=== PATIENT | male | born 1970 | race Hispanic/Latino ===

== ENCOUNTER 2020-10-07 10:29 | Emergency (ER) | payer OTHER, SELFPAY ==
--- NOTE | 2020-10-07 11:00 | ER ---
Nurse's Notes [facility] Name: Levy Willett Age: 50 yrs Sex: Male : 1970 Arrival Date: 10/07/2020 Time: 10:30 Bed 4 Private MD: Diagnosis: Unspecified fracture of second metacarpal bone, right hand-OPEN;Fracture of unspecified phalanx of left thumb-OPEN MCP, TENDON INVOLVEMENT Presentation: 10/07 10:30 Chief complaint: EMS states: Pt cut right hand with table saw, large amount of jl7 bleeding, tourniquet applied in route, 18 right FA. Care prior to arrival: IV initiated. 18 GA, in the right forearm. Mechanism of Injury: Laceration sustained at work, while working, from table saw Injury was accidental. 10:30 Acuity: GERBER 2 jl7 10:30 Method Of Arrival: EMS: [facility] jl7 10:30 Trauma event details: Injury occurred in the [facility], Injury occurred: at home. Injury occurred: October 07, 2020 Injury occurred at: 10:00. 10:30 Coronavirus screen: At this time, the client does not indicate any symptoms associated bp with coronavirus-19. Ebola Screen: No symptoms or risks identified at this time. Complicating Factors: There are no complicating factors for this patient. Initial Sepsis Screen: Does the patient meet any 2 criteria? HR > 90 bpm. No. Patient's initial sepsis screen is negative. Does the patient have a suspected source of infection? No. Patient's initial sepsis screen is negative. Risk Assessment: Do you want to hurt yourself or someone else? Patient reports no desire to harm self or others. Onset of symptoms was October 07, 2020 at 10:00. Triage Assessment: 10:30 Injury Description: Laceration sustained to right hand is 7.6 to 20 cm long, TOURNIQUET bp IN PLACE. Trauma Activation: Consult Physician: ED Physician; Name: ; Notified At: ; Arrived At: Physician: General Surgeon; Name: ; Notified At: ; Arrived At: Physician: Radiology; Name: ; Notified At: ; Arrived At: Physician: Respiratory; Name: ; Notified At: ; Arrived At: Physician: Lab; Name: ; Notified At: ; Arrived At: Historical: - Allergies: 10:30 No Known Allergies; bp - Home Meds: 10:30 None [Active]; bp - PMHx: 10:30 None; bp - Immunization history: Last tetanus immunization: unknown. - Social history:: Smoking status: Patient denies any tobacco usage or history of. Screenin:30 Abuse screen: Denies threats or abuse. Denies injuries from another. Tuberculosis bp screening: No symptoms or risk factors identified. 10:50 Nutritional screening: No deficits noted. Fall Risk None identified. bp Primary Survey: 10:30 NO uncontrolled hemorrhage observed. A: The patient is alert. Airway: patent. bp Breathing/Chest: Respiratory pattern: regular, Respiratory effort: spontaneous, unlabored. Circulation: Skin color: pink, Skin temperature: moist, cool. Disability Alert. Exposure/Environment: All clothing and personal items were removed. Forensic evidence collection is not deemed to be indicated at this time. Items placed in patient belonging bag. There is evidence of uncontrolled external hemorrhage. Provider notified immediately. Methods to control bleeding applied. Obvious injury(ies) are noted at this time: PARTIAL AMPUTATION OF R HAND A warming method has been applied: A warm blanket has been provided to the patient. Assessment: 10:30 General: Appears distressed, uncomfortable, Behavior is cooperative, appropriate for bp age, agitated, anxious. Pain: Complains of pain in right hand. Neuro: No deficits noted. EENT: No deficits noted. Cardiovascular: No deficits noted. Respiratory: No deficits noted. GI: No signs and/or symptoms were reported involving the gastrointestinal system. : No signs and/or symptoms were reported regarding the genitourinary system. Derm: No deficits noted. Musculoskeletal: No deficits noted. 10:50 Injury Description: Laceration sustained to right hand is 7.6 to 20 cm long, bleeding bp moderately, TOURNIQUET REMOVED BY MD, NO PULSATILE BLEEDING NOTED. Vital Signs: 10:30 BP 145 / 108; Pulse 74; Resp 24; Temp 97.5; Pulse Ox 99% ; bp 11:53 BP 171 / 84; Pulse 57; Resp 20; Temp 97.9(O); Pulse Ox 98% on R/A; mh5 Oscar Coma Score: 10:30 Eye Response: spontaneous(4). Verbal Response: oriented(5). Motor Response: obeys bp commands(6). Total: 15. Trauma Score (Adult): 10:30 Eye Response: spontaneous(1); Verbal Response: oriented(1); Motor Response: obeys bp commands(2); Systolic BP: > 89 mm Hg(4); Respiratory Rate: 10 to 29 per min(4); [place] Score: 15; Trauma Score: 12 ED Course: 10:30 Patient arrived in ED. am2 10:30 Arm band placed on. bp 10:30 Patient maintains SpO2 saturation greater than 95% on room air. Thermoregulation: warm bp blanket given to patient. 10:30 Maintain EMS IV. Dressing intact. Good blood return noted. Site clean \T\ dry. Gauge \T\ bp site: 18 GAUGE LEFT FA. 10:34 Carmen Smith, HANNA is Primary Nurse. jl7 10:34 Issa Ny MD is Attending Physician. [facility] 10:34 Patient has correct armband on for positive identification. Bed in low position. Call mh5 light in reach. Side rails up X 1. conveyor monitor on. Pulse ox on. NIBP on. 10:42 Triage completed. jl7 10:42 rBian Webster, HANNA is Primary Nurse. bp 10:[address] Ny with Zaida from the [facility] Transfer [place].eb 10:52 administrative approval given by Zaida Hillman Rn/ Patient has been accepted to [facility] ER/ Dr. Ortiz has accepted the patient without conference/ Report to be called to [phone]. 10:57 Hand Right 3 View XRAY In Process Unspecified. EDMS 11:49 Initial lab(s) drawn, by ED staff, EKG done, by ED staff, reviewed by Issa Ny MD 5 COVID swab sent to lab. Dressings: Jorge x 4 right hand. 11:52 Dressings: PRESSURE DRESSING. mh5 Administered Medications: 10:30 Drug: morphine 4 mg Route: IVP; Site: left forearm; bp 10:30 Drug: Zofran (Ondansetron) 4 mg Route: IVP; Site: left forearm; bp 10:35 Drug: fentaNYL (PF) 100 mcg Route: IVP; Site: left forearm; bp 10:45 Drug: NS 0.9% 500 ml Route: IV; Rate: bolus; Site: left forearm; bp 10:45 Drug: Dilaudid (HYDROmorphone) 1 mg Route: IVP; Site: left forearm; bp 11:00 Drug: Ancef (cefazolin) 2 grams Route: IVPB; Infused Over: 30 mins; Site: left forearm; bp 11:00 Drug: Tetanus-Diphtheria Toxoid Adult 0.5 ml {Skelp Processor: [employer]. Exp: bp 10/07/2021. Lot #: [id number]. } Route: IM; Site: left deltoid; 11:00 Drug: NS 0.9% 1000 ml Route: IV; Rate: 125 ml/hr; Site: left forearm; bp 11:10 Drug: Dilaudid (HYDROmorphone) 1 mg Route: IVP; Site: left forearm; bp Intake: 10:30 PO: 0ml; Total: 0ml. bp Output: 10:30 Urine: 0ml; Total: 0ml. bp Outcome: 11:00 ER care complete, transfer ordered by . darren 12:24 Patient left the ED. 5 Signatures: Dispatcher [employer] EDMS Issa Ny MD MD cha Calderon, Audri, RN RN [email or web address] [facility] Carmen Smith RN RN [email or web address] Caterina Abreu Brian, RN RN Debbi Gonzalez Corrections: (The following items were deleted from the chart) 10:52 10:50 Injury Description: Laceration sustained to right hand is 7.6 to 20 cm long, bp bleeding moderately, TOURNIQUET REMOVED, NO PULSATILE BLEEDING NOTED bp 12:20 11:49 CORONAVIRUS+MR.LAB.AYDEN drawn and sent. [address]
--- NOTE | 2020-10-07 11:00 | EDPHYS ---
Physician Documentation [facility] Name: Levy Willett Age: 50 yrs Sex: Male : 1970 Arrival Date: 10/07/2020 Time: 10:30 Bed 4 Private MD: ED Physician Issa Ny HPI: 10/07 10:50 This 50 yrs old Male presents to ER via EMS with complaints of Laceration To darren Hand. 10:50 The patient has a laceration related to: doing carpentry, occurred at work. The darren laceration(s) is(are) located on the right hand. Onset: The symptoms/episode began/occurred just prior to arrival. Associated signs and symptoms: The patient has no apparent associated signs or symptoms. The patient has not experienced similar symptoms in the past. The patient has not recently seen a physician. Historical: - Allergies: 10:30 No Known Allergies; bp - Home Meds: 10:30 None [Active]; bp - PMHx: 10:30 None; bp - Immunization history: Last tetanus immunization: unknown. - Social history:: Smoking status: Patient denies any tobacco usage or history of. ROS: 10:51 Constitutional: Negative for fever, chills, and weight loss, Eyes: Negative for injury, darren pain, redness, and discharge, ENT: Negative for injury, pain, and discharge, Neck: Negative for injury, pain, and swelling, Cardiovascular: Negative for chest pain, palpitations, and edema, Respiratory: Negative for shortness of breath, cough, wheezing, and pleuritic chest pain, Abdomen/GI: Negative for abdominal pain, nausea, vomiting, diarrhea, and constipation, Back: Negative for injury and pain, : Negative for injury, bleeding, discharge, and swelling, Skin: Negative for injury, rash, and discoloration, Neuro: Negative for headache, weakness, numbness, tingling, and seizure, Psych: Negative for depression, anxiety, suicide ideation, homicidal ideation, and hallucinations, Allergy/Immunology: Negative for hives, rash, and allergies, Endocrine: Negative for neck swelling, polydipsia, polyuria, polyphagia, and marked weight changes, Hematologic/Lymphatic: Negative for swollen nodes, abnormal bleeding, and unusual bruising. 10:51 MS/extremity: Positive for decreased range of motion, deformity, laceration, pain, swelling, tenderness, of the right hand. 10:51 MS/extremity: Positive for OPEN FRACTURES. Exam: 10:51 Constitutional: This is a well developed, well nourished patient who is awake, alert, darren and in no acute distress. Head/Face: Normocephalic, atraumatic. Eyes: Pupils equal round and reactive to light, extra-ocular motions intact. Lids and lashes normal. Conjunctiva and sclera are non-icteric and not injected. Cornea within normal limits. Periorbital areas with no swelling, redness, or edema. ENT: Nares patent. No nasal discharge, no septal abnormalities noted. Tympanic membranes are normal and external auditory canals are clear. Oropharynx with no redness, swelling, or masses, exudates, or evidence of obstruction, uvula midline. Mucous membranes moist. Neck: Trachea midline, no thyromegaly or masses palpated, and no cervical lymphadenopathy. Supple, full range of motion without nuchal rigidity, or vertebral point tenderness. No Meningismus. Chest/axilla: Normal chest wall appearance and motion. Nontender with no deformity. No lesions are appreciated. Cardiovascular: Regular rate and rhythm with a normal S1 and S2. No gallops, murmurs, or rubs. Normal PMI, no JVD. No pulse deficits. Respiratory: Lungs have equal breath sounds bilaterally, clear to auscultation and percussion. No rales, rhonchi or wheezes noted. No increased work of breathing, no retractions or nasal flaring. Abdomen/GI: Soft, non-tender, with normal bowel sounds. No distension or tympany. No guarding or rebound. No evidence of tenderness throughout. Back: No spinal tenderness. No costovertebral tenderness. Full range of motion. Male : Normal genitalia with no discharge or lesions. Skin: Warm, dry with normal turgor. Normal color with no rashes, no lesions, and no evidence of cellulitis. Neuro: Awake and alert, GCS 15, oriented to person, place, time, and situation. Cranial nerves II-XII grossly intact. Motor strength 5/5 in all extremities. Sensory grossly intact. Cerebellar exam normal. Normal gait. Psych: Awake, alert, with orientation to person, place and time. Behavior, mood, and affect are within normal limits. 10:51 Musculoskeletal/extremity: Extremities: noted in the right hand: decreased ROM, deformity, pain, swelling, tenderness, ROM: limited active range of motion, limited passive range of motion, limited active range of motion due to pain, limited passive range of motion due to pain, Circulation is intact in all extremities. Tingling of extremity. numbness, decreased sensation, Compartment Syndrome exam of affected extremity: is normal. Vital Signs: 10:30 BP 145 / 108; Pulse 74; Resp 24; Temp 97.5; Pulse Ox 99% ; bp 11:53 BP 171 / 84; Pulse 57; Resp 20; Temp 97.9(O); Pulse Ox 98% on R/A; mh5 Oscar Coma Score: 10:30 Eye Response: spontaneous(4). Verbal Response: oriented(5). Motor Response: obeys bp commands(6). Total: 15. Trauma Score (Adult): 10:30 Eye Response: spontaneous(1); Verbal Response: oriented(1); Motor Response: obeys bp commands(2); Systolic BP: > 89 mm Hg(4); Respiratory Rate: 10 to 29 per min(4); Oscar Score: 15; Trauma Score: 12 MDM: 10:35 Patient medically screened. [facility] 10:56 Differential diagnosis: tendon injury, vascular injury. Data reviewed: vital signs, [facility] nurses notes, lab test result(s), EKG, radiologic studies, plain films. Data interpreted: bus monitor: rate is 74 beats/min, Pulse oximetry: on room air is 99 %. Test interpretation: by ED physician or midlevel provider: ECG, plain radiologic studies. Counseling: I had a detailed discussion with the patient and/or guardian regarding: the historical points, exam findings, and any diagnostic results supporting the discharge/admit diagnosis, lab results, radiology results, the need to transfer to another facility, for higher level of care, [facility] does not immediately have the required specialist. 10/07 10:49 Order name: CBC with Diff; Complete Time: 11:53 [facility] 10/07 10:49 Order name: Comprehensive Metabolic Panel; Complete Time: 11:53 [facility] 10/07 10:49 Order name: Hand Right 3 View XRAY; Complete Time: 11:53 [facility] 10/07 10:49 Order name: EKG; Complete Time: 10:50 [facility] 10/07 10:49 Order name: EKG - Nurse/Tech; Complete Time: 11:49 [facility] 10/07 10:49 Order name: NPO; Complete Time: 10:53 [facility] 10/07 10:49 Order name: Wound dressing; Complete Time: 10:53 [facility] Administered Medications: 10:30 Drug: morphine 4 mg Route: IVP; Site: left forearm; bp 10:30 Drug: Zofran (Ondansetron) 4 mg Route: IVP; Site: left forearm; bp 10:35 Drug: fentaNYL (PF) 100 mcg Route: IVP; Site: left forearm; bp 10:45 Drug: NS 0.9% 500 ml Route: IV; Rate: bolus; Site: left forearm; bp 10:45 Drug: Dilaudid (HYDROmorphone) 1 mg Route: IVP; Site: left forearm; bp 11:00 Drug: Ancef (cefazolin) 2 grams Route: IVPB; Infused Over: 30 mins; Site: left forearm; bp 11:00 Drug: Tetanus-Diphtheria Toxoid Adult 0.5 ml {Table Tender: [employer]. Exp: bp 10/07/2021. Lot #: [id number]. } Route: IM; Site: left deltoid; 11:00 Drug: NS 0.9% 1000 ml Route: IV; Rate: 125 ml/hr; Site: left forearm; bp 11:10 Drug: Dilaudid (HYDROmorphone) 1 mg Route: IVP; Site: left forearm; bp Disposition: 10/07/20 11:00 Transfer ordered to [facility]. Diagnosis are Unspecified fracture of second metacarpal bone, right hand - OPEN, Fracture of unspecified phalanx of left thumb - OPEN MCP, TENDON INVOLVEMENT. - Reason for transfer: Higher level of care. - Accepting physician is TO [facility] , ER , DR GUERRA. - Condition is Stable. - Problem is new. - Symptoms are unchanged. Signatures: Dispatcher [employer] Issa Carlton MD MD cha Calderon, Audri, RN RN aa5 Brian Webster, RN RN bp Corrections: (The following items were deleted from the chart) 12:20 10:49 CORONAVIRUS+MR.LAB.LOZ ordered. ZARAAK DIMPLE 12:24 11:00 10/07/2020 11:00 Transfer ordered to [facility]. Diagnosis is aa5 Unspecified fracture of second metacarpal bone, right hand - OPEN; Fracture of unspecified phalanx of left thumb - OPEN MCP, TENDON INVOLVEMENT. Reason for transfer: Higher level of care. Accepting physician is TO [facility] , ER , DR GUERRA. Condition is Stable. Problem is new. Symptoms are unchanged. darren
[2020-10-07] MEDS ORDERED: CEFAZOLIN SODIUM 1 GM/VIAL ONE (11:16)
[2020-10-07] MEDS ORDERED: NA CHLORIDE 0.9% 100 ML ONE (11:17)
[2020-10-07] MEDS ORDERED: TETANUS & DIPHTHERIA TOX,ADULT 0.5 ML VIAL ONE (11:17)
[2020-10-07 11:20] LABS: Absolute Lymphocytes (CBC) 1.4 K/uL (0.7-4.9); Basophils % 0.9 % (0-1.3); Hematocrit 39.3 % (39.6-49.0); Lymphocytes % 19.9 % (15.3-44.8); MPV 8.7 fL (7.6-11.3); RBC Red Blood Cell Count 4.41 M/uL (4.33-5.43)
[2020-10-07 11:36] LABS: ALT/SGPT 56 U/L (12-78); AST/SGOT 24 U/L (15-37); Albumin 3.5 g/dL (3.4-5.0); Alkaline Phosphatase 84 U/L (45-117); BUN Blood Urea Nitrogen 19 mg/dL (7-18); Bicarbonate 24 mmol/L (21-32); Bilirubin Total 0.3 mg/dL (0.2-1.0); Glucose Level 121 mg/dL (74-106); Potassium 3.6 mmol/L (3.5-5.1); Protein, Total 6.6 g/dL (6.4-8.2); Sodium Level 139 mmol/L (136-145)
--- NOTE | 2020-10-07 11:48 | RAD REPORT ---
EXAM DESCRIPTION: RAD - Hand Right 3 View - 10/07/2020 10:57 am CLINICAL HISTORY: PAIN COMPARISON: None. FINDINGS: Comminuted fracture is present through the distal first metacarpal. There is a main distal fracture fragment with numerous small bone fragments present. Distal fracture fragment is displaced 1/2 shaft width. Comminuted fracture of the proximal shaft second metacarpal present. Fracture does n ot extend through the full thickness of the shaft. Bandaging is in place slightly limiting detail. IMPRESSION: Comminuted fracture traversing the distal first metacarpal. Comminuted fracture proximal shaft second metacarpal.
[2020-10-07 12:30] VITALS: BP 171/84; TEMP 97.9; O2SAT 98
== END 2020-10-07 12:24 | disposition short-term general hospital (02) ==
LOC: ER 10:29
DX: S62.320B Displaced fracture of shaft of second metacarpal bone, right hand, initial encounter for open fracture (principal); S62.291B Other fracture of first metacarpal bone, right hand, initial encounter for open fracture; S66.921A Laceration of unspecified muscle, fascia and tendon at wrist and hand level, right hand, initial encounter; Y99.0 Civilian activity done for income or pay; Z23 Encounter for immunization
CPT/HCPCS: 36415; 80053; 85025; 90471; 90714; 93005; 96374; 96375; 99285; J0690; U0003